=== PATIENT | female | born 1945 | race Caucasian/White ===

== ENCOUNTER 2016-11-14 13:30 | Inpatient (IN) | payer MEDICARE, OTHER ==
[~2016-11-14] VITALS: Ht 154.9 cm; Wt 58.5 kg
--- NOTE | 2016-11-14 13:25 | NUR ---
RECIEVED FROM PRIVATE VEHICLE FROM [facility].DRSG TO LOW MID BACK INTACT.TAKEN TO ROOM 1113B.CL IN REACH.
--- NOTE | 2016-11-14 16:00 | NUR ---
RESTING QUIETLY.VISITING WITH .
[2016-11-14 17:14] VITALS: BP 107/68; BMI 24.4
[2016-11-14 18:12] LABS: APPEARANCE CLEAR (CLEAR); BILIRUBIN NEGATIVE (NEGATIVE); COLOR YELLOW (YELLOW); GLUCOSE NEGATIVE (NEGATIVE); KETONE NEGATIVE (NEGATIVE); LEUKOCYTE ESTERASE NEGATIVE (NEGATIVE); NITRITE NEGATIVE (NEGATIVE); PROTEIN NEGATIVE (NEGATIVE); UROBILINOGEN NORMAL (NORMAL)
[2016-11-14 19:20] VITALS: BP 116/71
--- NOTE | 2016-11-14 19:32 | NUR ---
PT RECEIVE UP ON SIDE OF BED TALKING WITH SPOUSE. NO COMPLAINTS OR CONCERNS NOTED AT THIS TIME. CALL LIGHT IN REACH.
--- NOTE | 2016-11-14 21:49 | NUR ---
PT IN BED WITH EYES OPEN LOOKING AT PHONE. NO CONCERNS NOTED AT THIS TIME. CALL LIGHT IN REACH. WILL CONTINUE TO OBSERVE.
--- NOTE | 2016-11-15 00:03 | NUR ---
PT IN BED WITH EYES CLOSED AND EASILY AROUSED. ASSIST TO LEFT SIDE WITH PILLOW PROVIDED FOR SUPPORT. NO CONCERNS NOTED AT THIS TIME. CALL LIGHT IN REACH. WILL CONTINUE TO OBSERVE.
--- NOTE | 2016-11-15 01:52 | NUR ---
PT RESTING IN BED WITH EYES CLOSED AND CHEST RISING. RESPIRATIONS EVEN AND UNLABORED. NO SIGN/SYMPTOMS OF PAIN OR DISTRESS NOTED. CALL LIGHT IN REACH. WILL CONTINUE TO OBSERVE.
--- NOTE | 2016-11-15 03:17 | NUR ---
PT COMPLAINS OF PAIN TO LOWER BACK 6/10 WITH PRN PERCOCET GIVEN PER ORDERS. CALL LIGHT IN REACH. WILL CONTINUE TO OBSERVE.
[2016-11-15 06:12] LABS: BASOPHILS 0.5 % (0.0-2.0); EOSINOPHILS 2.7 % (0-7); HEMATOCRIT 29.4 % (36.0-48.0); HEMOGLOBIN 9.6 g/dL (12-16); IMMATURE GRANULOCYTES 0.4 % (0-5); LYMPHOCYTES 20.8 % (15-50); MCH 28.6 pg (26.0-34.0); MCHC 32.7 g/dL (31.0-37.0); MCV 87.5 fL (80.0-100.0); MEAN PLATELET VOLUME 9.7 fL (7.4-10.4); MONOCYTES 6.1 % (2-11); NEUTROPHILS 69.5 % (40-80); PLATELET COUNT 179 10x3/uL (130-400); RBC 3.36 10x6/uL (4.00-5.40); RDW 14.2 % (11.5-14.5); WBC 5.6 10x3/uL (4.8-10.8)
--- NOTE | 2016-11-15 06:15 | NUR ---
PT IN BED LYING FLAT ON BACK. NO COMPLAINTS MADE KNOWN. RECEIVED MEDICATIONS WHOLE WITHOUT DIFFICULTY. CALL LIGHT IN REACH.
[2016-11-15 06:32] LABS: CALC OSMOLALITY 280 mosm/kg (275-300); CALCIUM 7.9 mg/dL (8.5-10.1); CARBON DIOXIDE 28.6 mmol/L (21.0-32.0); CHLORIDE - SERUM 107 mmol/L (98-107); CREATININE - SERUM 0.7 mg/dL (0.6-1.3); GLUCOSE 97 mg/dL (74-106); POTASSIUM - SERUM 3.6 mmol/L (3.5-5.1); SODIUM 142 mmol/L (136-145); UREA NITROGEN 7 mg/dL (7-18); eGFR NON AFRICAN AMERICAN 88 mL/min (90-120)
--- NOTE | 2016-11-15 07:00 | NUR ---
PT WAS RECEIVED IN BED AT THE BEGINNING OF THIS SHIFT. AWAKE AND ORIENTED X 3. SHE NEEDED TO GO TO THE BATHROOM AND WAS ASSISTED THERE WITH STAND BY ASSIST. VITAL SIGNS: TEMP. 99.1, PULSE 82, RESP. 14, B/P 144/75, 02SAT. 95%. WILL BE MONITORING HER AND ASSISTING PRN WITH ADL'S. STABLE CONDITION OBSERVED.
[2016-11-15 09:25] VITALS: BP 144/75
--- NOTE | 2016-11-15 10:48 | NUR ---
PT WALKED WITH THERAPY THIS MORNING. DR. COPPOLA ROUNDED AND TALKED WITH PT. NEW ORDER RECEIVED.
--- NOTE | 2016-11-15 16:15 | NUR ---
CARE TEAM MEETING: PATIENT NEW TO UNIT AND WILL BE RA AT NEXT MEETING. WILL CONINUE TO FOLLOW WITH PATIENT
--- NOTE | 2016-11-15 19:25 | NUR ---
INTRODUCED SELF TO PT, PT STATES NO NEEDS AT THIS TIME, WILL CONTINUE TO MONITOR, CALL LIGHT WITHIN REACH.
[2016-11-15 20:16] VITALS: BP 129/74
--- NOTE | 2016-11-15 21:00 | NUR ---
NIGHT MEDICATION GIVEN, PT STATES PAIN AT A 5 IN LOW BACK AND LEG, PT TOLERATED WELL WILL CONTINUE TO MONITOR, CALL LIGHT WITHIN REACH.
--- NOTE | 2016-11-15 22:31 | NUR ---
ASSISTED PT TO BATHROOM AND BACK TO BED WITH MINIMAL ASSISTANCE, WILL CONTINUE TO MONITOR, CALL LIGHT WITHIN REACH.
--- NOTE | 2016-11-16 00:11 | NUR ---
PT RESTING QUIETLY, RESPIRATIONS EVEN, BED IN LOW POSITION, SIDE RAILS UP X'S 2, CALL LIGHT WITHIN REACH, WILL CONTINUE TO MONITOR.
--- NOTE | 2016-11-16 00:40 | NUR ---
ASSISTED PT. TO BATHROOM TO URINATE. PT.MOVING VERY SLOW BUT CAUTIOUS. AFTERWARD PT. WANTED TO SIT UP IN THE CHAIR FOR A WHILE AND SHE WILL LET ME KNOW WHEN SHE WANTS TO GO BACK TO BED. CALL LIGHT WITHIN REACH.
--- NOTE | 2016-11-16 01:35 | NUR ---
ASSISTED PT. BACK TO BED. PT. POSITIONED TO COMFORT WITH HOB FLAT. PT. CONTINUE TO USE LOG ROLLING TECHNIQUE TO GET IN/OUT OF BED. PT. DENIES ANY NEEDS AT THIS TIME AND CALL LIGHT IS WITHIN REACH.
--- NOTE | 2016-11-16 06:00 | NUR ---
PT. IN BED WITH HOB FLAT AND LYING ON HER BACK FOR HER POST-OP INSTUCTIONS. EYES CLOSED AND RESP. EVEN. PT. AWAKENS EASILY AND REQUESTED ASSISTANCE TO THE BATHROOM TO URINATE. PT. DECIDED TO GO TO THE W/C AND BE UP FOR BREAKFAST. CALL LIGHT WITHIN REACH. PT. HAS NO VOICED NEEDS AT THIS TIME.
--- NOTE | 2016-11-16 07:28 | NUR ---
RESTING QUIETLY IN BED. CALL LIGHT IN REACH
[2016-11-16] MEDS ORDERED: LOVENOX40 MG/0.4 SC (07:49)
[2016-11-16] MEDS ORDERED: COLACE100 MG PO (07:49)
[2016-11-16] MEDS ORDERED: LINZESS145 MCG PO (07:50)
[2016-11-16] MEDS ORDERED: MIRALAX17 GM PO (07:51)
[2016-11-16] MEDS ORDERED: PROTONIX40 MG PO (07:51)
[2016-11-16] MEDS ORDERED: MIDODRINE HCL5 MG PO (07:51)
[2016-11-16] MEDS ORDERED: ACETAMINOPHEN325 MG PO (07:52)
[2016-11-16] MEDS ORDERED: VALIUM5 MG PO (07:53)
[2016-11-16] MEDS ORDERED: PERCOCET 5-3251 TAB PO (07:53)
[2016-11-16] MEDS ORDERED: ZANAFLEX4 MG PO (07:54)
[2016-11-16] MEDS ORDERED: AMBIEN5 MG PO (07:55)
--- NOTE | 2016-11-16 08:15 | NUR ---
PT UP IN CHAIR IN ROOM NO PROBLEMS CALL LIGHT IN REACH WILL MONITER
[2016-11-16 11:17] VITALS: BP 125/79
--- NOTE | 2016-11-16 13:50 | NUR ---
PT RESTING IN BED WITH EYES OPEN CALL LIGHT IN REACH WILL MONITER
--- NOTE | 2016-11-16 17:50 | NUR ---
PT RESTING IN BED WITH EYES OPEN CALL LIGHT IN REACH NO PROBLEMS WILL MONITER
[2016-11-16 18:50] VITALS: BP 136/87
--- NOTE | 2016-11-16 20:30 | NUR ---
PT TOOK HS MEDS WITHOUT DIFFICULTY. PT REQ AND REC'D PRN PAIN MEDICINE FOR LOWER BACK PAIN AND AMBIEN FOR SLEEP. PT DENIES FURTHUR NEEDS AT THIS TIME. BED LOW. CL IN REACH.
--- NOTE | 2016-11-16 22:02 | NUR ---
PT RESTING, EYES CLOSED. BED LOW. CL IN REACH. WCTM.
--- NOTE | 2016-11-17 00:09 | NUR ---
PT RESTING, EYES CLOSED. BED LOW. CL IN REACH. WCTM.
--- NOTE | 2016-11-17 03:44 | NUR ---
PT RESTING, EYES CLOSED. BED LOW. CL IN REACH. WCTM.
--- NOTE | 2016-11-17 05:41 | NUR ---
PT REQ AND REC'D PRN PAIN MEDICATION FOR BACK PAIN. PT REFUSED LINZESS. PT SITTING UP AT BEDSIDE IN CHAIR AT THIS TIME AND DENIES FURTHUR NEEDS. WCTM. BED LOW. CL IN REACH.
[2016-11-17 07:52] VITALS: BP 120/73
--- NOTE | 2016-11-17 08:00 | NUR ---
SITTING UP IN WC EATING BREAKFAST;STATES PAIN EASED.CL IN REACH.DENIES NEEDS.
--- NOTE | 2016-11-17 12:00 | NUR ---
EATING LUNCH.DENIES NEEDS.
--- NOTE | 2016-11-17 16:00 | NUR ---
PT STATES MAY HAVE INDEPENDENCE IN ROOM.
[2016-11-17 19:49] VITALS: BP 119/75
--- NOTE | 2016-11-17 20:28 | NUR ---
PT UP AT SINK BRUSHING TEETH. PT HAS BEEN APPROVED BY THERAPY TO BE UP AD LETI. PT DENIES NEEDS AT THIS TIME.
--- NOTE | 2016-11-17 21:33 | NUR ---
PT REQ AND REC'D PRN AMBIEN FOR SLEEP. WCTM. BED LOW. CL INR EACH.
--- NOTE | 2016-11-17 21:35 | NUR ---
PT REQ ADN REC'D PRN NEENA FOR SLEEP. WCTM. BED LOW. CL IN REACH.
--- NOTE | 2016-11-18 00:30 | NUR ---
PT RESTING EYES CLOSED. BED LOW. CL IN REACH.
--- NOTE | 2016-11-18 02:30 | NUR ---
PT REQ AND REC'D PRN ZANAFLEX. WCTM. BED LOW. CL IN REACH.
--- NOTE | 2016-11-18 04:30 | NUR ---
PT REQ AND REC'D PRN PAIN MEDICATION FOR BACK PAIN. WCTM. BED LOW. CL IN REACH.
[2016-11-18 07:00] VITALS: BP 121/70
--- NOTE | 2016-11-18 08:00 | NUR ---
SHIFT ASSMT COMPLETED.DRSG TO LOW BACK.C/D/I.
--- NOTE | 2016-11-18 12:00 | NUR ---
EATING LUNCH.SITTING UP IN CHAIR.
--- NOTE | 2016-11-18 16:00 | NUR ---
VISITING WITH FRIENDS.
--- NOTE | 2016-11-18 19:30 | NUR ---
PT IS RESTING IN BED WITH EYES OPEN. ALERT AND ORIENTED X 4. DENIES ACUTE DISCOMFORT AT THIS TIME. VSS. NO NEEDS VOICED. DRESSING TO BACK IS CDI. PT DENIES ANY LEG SPASMS AT THIS TIME. SR'S ARE UP X 2 IN BED. CALL LIGHT AND BEDSIDE TABLE ARE WITHIN EASY REACH.
[2016-11-18 20:00] VITALS: BP 123/78
--- NOTE | 2016-11-18 21:40 | NUR ---
PT RESTING IN BED WITH EYES OPEN. NO NEEDS VOICED.
--- NOTE | 2016-11-19 00:30 | NUR ---
RESTING IN BED WITH EYES CLOSED. NO DISTRESS NOTED.
--- NOTE | 2016-11-19 03:45 | NUR ---
RESTING IN BED WITH EYES CLOSED.
--- NOTE | 2016-11-19 04:23 | NUR ---
PT ASSISTED TO THE BATHROOM WITH MAX ASSIST TO GET OUT OF BED, AND SBA FOR ALL OTHER TASKS. PT UNABLE TO BEND HER RIGHT LEG GETTING UP DUE TO EXTREME CRAMPING AND PAIN. NO FURTHER PAIN COMPLAINTS AFTER PT WAS IN A SITTING POSITION. MEDICATED PER DEC.
--- NOTE | 2016-11-19 06:12 | NUR ---
pt awake, lying in bed, respirations regular and unlabored.
[2016-11-19 07:00] VITALS: BP 112/60
--- NOTE | 2016-11-19 08:00 | NUR ---
AWAKE THIS AM SITTING UP IN CHAIR.DENIES NEEDS AT THIS TIME.STATES HAVING MORE SPASM PAIN DOWN RLE THAN ANYTHING ELSE.BREAKFAST GIVEN.DRSG TO BACK REMAINS INTACT.
--- NOTE | 2016-11-19 12:00 | NUR ---
REMAINS UP IN WC.VISITING WITH .
--- NOTE | 2016-11-19 20:00 | NUR ---
PT IS RESTING IN BED WITH EYES OPEN. ALERT AND ORIENTED X 3. DENIES ACUTE CRAMPING AT THIS TIME, BUT VOICED A PAIN LEVEL OF 4. DRESSING TO BACK IS CDI. PT IS INDEPENDENT IN HER ROOM, BUT WILL REQUEST ASSISTANCE WHEN NEEDED. SR'S ARE UP X 2 IN BED. CALL LIGHT AND BEDSIDE TABLE ARE WITHIN EASY REACH.
[2016-11-19 20:39] VITALS: BP 105/63
--- NOTE | 2016-11-19 22:14 | NUR ---
RESTING QUIETLY IN BED WITH EYES CLOSED. RESPS ARE EVEN AND UNLABORED. NO ACUTE DISTRESS NOTED.
--- NOTE | 2016-11-20 00:10 | NUR ---
PT RESTING, EYES CLOSED. BED LOW. CL IN REACH.
--- NOTE | 2016-11-20 03:01 | NUR ---
RESTING IN BED WITH EYES CLOSED.
--- NOTE | 2016-11-20 03:25 | NUR ---
PT USED CALL LIGHT TO REQUEST ASSIST TO THE BATHROOM. STATES SHE IS HAVING TROUBLE GETTING OUT OF BED, AND WANTS IT DOCUMENTED SUCH. PT GOT OUT OF BED WITH SBA FOR ALL TASKS. NO GRIMACING OR ACUTE DISCOMFORT NOTED. PT OPTED TO SIT UP IN CHAIR AFTERWARDS. MEDICATED PER DEC.
--- NOTE | 2016-11-20 06:00 | NUR ---
PT RESTING IN BED WITH EYES CLOSED. AWOKE EASILY TO VERBAL STIMULI. DENIED NEEDS. TOLERATED AM MEDS WITHOUT DIFFICULTY.
--- NOTE | 2016-11-20 07:45 | NUR ---
SITTING UP IN CHAIR IN ROOM EATING BREAKFAST. ALERT AND ORIENTED X3. MOVEMENT AROUND ROOM IS SLOW BUT STEADY
[2016-11-20 07:53] VITALS: BP 123/74
--- NOTE | 2016-11-20 12:21 | NUR ---
SITTING UP IN CHAIR EATING LUNCH IN ROOM. PAIN MEDS EFFECTIVE FOR BACK PAIN.
--- NOTE | 2016-11-20 18:08 | NUR ---
SITTING IN CHAIR BY BED TALKING TO FRIEND. DENIES NEEDS.
[2016-11-20 19:15] VITALS: BP 123/72
--- NOTE | 2016-11-20 19:20 | NUR ---
PT IN BED WITH HOB ELEVATED WATCHING TV. NO CONCERNS NOTED AT THIS TIME. CALL LIGHT IN REACH. WILL CONTINUE TO OBSERVE.
--- NOTE | 2016-11-20 21:15 | NUR ---
PT IN BED WITH EYES OPEN RECEIVED PRN BACLAFEN AND AMBIEN PER REQUEST. NO CONCERNS MADE KNOWN. CALL LIGHT IN REACH. WILL CONTINUE TO OBSERVE.
--- NOTE | 2016-11-20 23:02 | NUR ---
PT ASSISTED TO BATHROOM. COMPLAINS OF PAIN 6/10 WITH PRN PERCOCET GIVEN PER DEC. IN CHAIR AT BEDSIDE AT THIS TIME. WATER AND CALL LIGHT IN REACH. WILL CONTINUE TO OBSERVE.
--- NOTE | 2016-11-21 01:45 | NUR ---
PT IN BED WITH EYES CLOSED AND CHEST RISING. RESPIRATIONS EVEN AND UNLABORED. CALL LIGHT IN REACH. WILL CONTINUE TO OBSERVE.
--- NOTE | 2016-11-21 03:45 | NUR ---
PT IN BED WITH EYES CLOSED AND CHEST RISING. RESPIRATIONS EVEN AND UNLABORED. NO CONCERNS NOTED AT THIS TIME. CALL LIGHT IN REACH. WILL CONTINUE TO OBSERVE.
--- NOTE | 2016-11-21 07:00 | NUR ---
PT IN BED WITH EYES OPEN PAIN AT 3/10. RECEIVED SCHEDULED MEDICATIONS WITHOUT DIFFICULTY. CALL LIGHT IN REACH.
--- NOTE | 2016-11-21 07:30 | NUR ---
SITTING UP IN CHAIR IN ROOM WAITING ON BREAKFAST. PAIN CONTROLLED BY CURRENT MEDS. MOVES AROUND IN ROOM WITH NO ASST
[2016-11-21 08:44] VITALS: BP 129/57
--- NOTE | 2016-11-21 13:31 | NUR ---
SITTING UP IN W/C IN HER ROOM VISITING WITH . PAIN MEDS GIVEN ORDERED FOR BACK PAIN
--- NOTE | 2016-11-21 18:37 | NUR ---
RESTING QUIETLY IN BED. CALL LIGHT IN REACH
[2016-11-21 18:40] VITALS: BP 119/67
--- NOTE | 2016-11-21 22:52 | NUR ---
PT IN BED WITH EYES OPEN READING A BOOK. NO COMPLAINTS OR CONCERNS NOTED. CALL LIGHT IN REACH. WILL CONTINUE TO OBSERVE.
--- NOTE | 2016-11-22 00:38 | NUR ---
PT IN BED WITH EYES CLOSED WITH CHEST RISING. RESPIRATIONS EVEN AND UNLABORED. NO SIGN/SYMPTOMS OF DISTRESS NOTED. CALL LIGHT IN REACH. WILL CONTINUE TO OBSERVE.
--- NOTE | 2016-11-22 03:18 | NUR ---
PT COMPLAINS OF 4/10 PAIN TO BACK WITH PRN PERCOCET GIVEN PER MAR. IN BED LYING ON RIGHT SIDE AT THIS TIME. CALL LIGHT IN REACH. WILL CONTINUE TO OBSERVE.
--- NOTE | 2016-11-22 06:41 | NUR ---
PT UP IN CHAIR. NO CONCERNS MADE KNOWN. RECEIVED SCHEDULED MEDICATIONS WITHOUT DIFFICULTY. CALL LIGHT IN REACH.
--- NOTE | 2016-11-22 08:00 | NUR ---
SHIFT ASSMT COMPLETED.SITTING UP IN CHAIR.CL IN REACH.
[2016-11-22 08:09] VITALS: BP 116/73
--- NOTE | 2016-11-22 08:44 | RHP ---
PATIENT: SHERYL REID MEDICAL RECORD: [id number] ACCOUNT: [id number] LOCATION:[facility]1113 : 47 ADMISSION DATE: 11/14/16 REHABILITATION HISTORY AND PHYSICAL EXAMINATION POST ADMISSION PHYSICIAN EXAMINATION DATE OF ADMISSION TO THE REHAB: 11/14/2016. ADMITTING DIAGNOSES: Spondylolisthesis at L4-L5, status post L4-L5 TLIF reduction of spondylolisthesis. HISTORY OF PRESENT ILLNESS: The patient is a 71-year-old female patient with past medical history of back pain, gastroesophageal reflux disease and osteoarthritis. She has had low back pain for several years with exacerbation approximately 2 years ago when she reached out or picked up an object. Since then, she has been experiencing acute pains even when coughing or sneezing. She had episodes of severe pain, which resulted in significant loss of her ability to do activities of daily living and difficulty with ambulating. She attended physical therapy as well as lumbar epidural spinal injections which did not help, flexion x-rays revealed grade I to II L4-L5 spondylolisthesis. MRI of the spine reveals significant height loss in association with the spondylolisthesis, there was also a significant for type 2 Modic changes particular present and superior endplate of L5. Also, presence broad-based disc collapse at L4-L5 with neural foraminal stenosis. The facet joints at L4-L5 are widely open with evidence of fluid on MRI scan. She was seen by Dr. Arreola and underwent a posterior lumbar L4-L5 TLIF and reduction of spondylolisthesis. The patient has not had a bowel movement since surgery, but is urinating without difficulty. She participate in therapy; however, she does require assistance with ambulation, ADLs and transfers. She is doing 60 feet with minimal assist, but require several rest breaks, acute inpatient rehabilitation was ordered by her neurosurgeon. COMORBIDITIES: Include L4-L5 spondylolisthesis L4-L5 disc collapse, gastroesophageal reflux disease, osteoarthritis, chronic back pain, and postop constipation. PAST MEDICAL HISTORY: Significant spondylolisthesis, gastroesophageal reflux disease and osteoarthritis. PAST SURGICAL HISTORY: Includes hysterectomy, bunionectomy, hand surgery. ALLERGIES: No known drug allergies. CURRENT MEDICATIONS: Include polyethylene glycol 17 grams in 8 ounces of water daily, Protonix 40 mg daily, Lovenox 40 mg subQ daily, zolpidem 5 mg q.h.s. p.r.n., Tylenol 650 mg q.4 hours p.r.n., Colace 100 mg b.i.d., ____ mg t.i.d. She is on Valium 5 mg q. 6 hours p.r.n. spasm, Zanaflex 4 mg q.8 p.r.n. spasm and oxycodone 5 mg 5/325 as needed for pain. I am going to add Linzess 145 mcg in the morning to help with constipation. HABITS: No alcohol or tobacco use. FAMILY HISTORY: Noncontributory. SOCIAL HISTORY: The patient hopes to return back home to her . HISTORY AND PHYSICAL [id number] SHERYL REID REVIEW OF SYSTEMS: GENERAL: She does complain of weakness and fatigue. HEENT: She denies cold, cough, or congestion. CARDIOVASCULAR: She denies chest pain. PHYSICAL EXAMINATION: VITAL SIGNS: Stable and afebrile. GENERAL: Well-developed female in no acute distress, alert upon exam. HEENT: Normocephalic and atraumatic. Mucosa moist. NECK: Supple. No lymphadenopathy. LUNGS: Clear at this time. HEART: Regular rate and rhythm. ABDOMEN: Benign. EXTREMITIES: No clubbing, cyanosis or edema. NEUROLOGIC: She is intact. She does have some weakness associated with her surgery, but nothing acute. LABORATORY DATA: Her white count is 5.6, H&H 9.6 and 29.4, platelet count is 179. Her sodium is 142, potassium 3.6. BUN and creatinine of 7 and 0.7, blood sugar is noted to be 97. ASSESSMENT: This is a 71-year-old female patient admitted to rehab with a working diagnosis of spondylolisthesis, status post TLIF of her L4-L5. The patient has potential to make improvement. We instituted the following multidisciplinary therapies including to, but not limited to physical, occupational, respiratory, speech, nutritional services, prosthetics and orthotics. Given her complex condition and risk for more complications, rehabilitation services cannot be provided at a low level of care such as assisted facility. PLAN: 1. Admit to [facility] rehab for intensive inpatient therapy to include the following disciplines: A. Physical therapy to improve gait, all transfer skills and bed mobility to a modified independent level. B. Occupational therapy to improve activities of daily living to a modified independent level. C. Case management to assist with discharge planning and placement options. D. Nutrition to assist with nutritional needs. E. Rehabilitation nursing to assist in monitoring the patient's underlying medical conditions and to assist with any type of bowel or bladder management. 2. The patient's current medication and medical care will be continued. 3. The patient will be placed on standard fall precautions. 4. The patient's estimated length of stay is approximately 7-10 days. 5. Discuss this patient during care team staff meeting this week. TRANSINT:[id number] Voice Confirmation ID: [id number] DOCUMENT ID: [id number] HISTORY AND PHYSICAL [id number] SHERYL REID SCOTT MD at 0844 CC: [id number] DICTATION DATE: 11/15/16 0833 MENAGERIE CARETAKER: 11/15/16 1000 ADM IN [place] [id number] [place] [id number]
[2016-11-22 13:19] VITALS: Ht 154.9 cm; Wt 58.5 kg
--- NOTE | 2016-11-22 14:45 | NUR ---
CARE TEAM MEETING: PATIENT AND SPOUSE ATTENDED MEETING. TENATIVE DISCHARGE DATE IS 11/23/16. [facility] [employer] WILL PROVIDE NURSING, PT, OT. SPOUSE WILL PURCHASE [employer] FOR HOME USE. APPOINTMENTS: DR. COPPOLA 11/27/16 @ 11:30. SURGEON APPOINTMENT 11/23/16 @ 1:30 IN [place]. PATIENT CHOICE FORMS FOR HOME HEALTH AND [facility] FORM SIGNED, EXPLAINED AND FILED IN CHART. WILL CONTINUE TO FOLLOW WITH PATIENT UNTIL DISCHARGED.
[2016-11-22 19:10] VITALS: BP 122/64
--- NOTE | 2016-11-22 19:50 | NUR ---
PT UP IN CHAIR AT BEDSIDE. REQUEST AND RECEIVED CRANBERRY JUICE. NO OTHER NEEDS MADE KNOWN AT THIS TIME. CALL LIGHT IN REACH. WILL CONTINUE TO OBSERVE.
--- NOTE | 2016-11-22 21:32 | NUR ---
PT IN BED READING. COMPLAINED OF SPASMS WITH PRN BACLOFEN GIVEN. CALL LIGHT IN REACH. WILL CONTINUE TO OBSERVE.
--- NOTE | 2016-11-22 23:19 | NUR ---
PT IN BED WITH EYES CLOSED LYING ON LEFT SIDE. RESPIRATIONS EVEN AND UNLABORED. CALL LIGHT IN REACH. WILL CONTINUE TO OBSERVE.
--- NOTE | 2016-11-23 00:25 | NUR ---
PT IN BED WITH EYES OPEN STATING JUST RETURNED TO BED FROM BATHROOM. NO COMPLAINTS OF DISCOMFORT OR OTHER NEEDS MADE KNOWN AT THIS TIME. CALL LIGHT IN REACH. WILL CONTINUE TO OBSERVE.
--- NOTE | 2016-11-23 02:16 | NUR ---
PT IN BED AROUSED TO ENTRY. NO NEEDS MADE KNOWN AT THIS TIME. CALL LIGHT IN REACH. WILL CONTINUE TO OBSERVE.
--- NOTE | 2016-11-23 06:41 | NUR ---
PT IN BED WITH EYES OPEN. MEDICATIONS ADMINISTER WITHOUT DIFFICULTY. NO CONCERNS MADE KNOWN. CALL LIGHT IN REACH.
--- NOTE | 2016-11-23 08:00 | NUR ---
SHIFT ASSMT COMPLETED.DRSG IN PLACE TO LOW MID BACK;REQUESTED FOR [facility] TO REMOVE AT [facility] TODAY.PLAN TO DISCHARGE HOME THIS AM.
[2016-11-23] MEDS ORDERED: BACLOFEN10 MG PO (08:31)
--- NOTE | 2016-11-23 09:27 | NUR ---
ORDERED ROLLING WALKER AND BSC FOR PATIENT FROM [facility] THAT WILL BE DELIVERED TO PATIENT HOME
[2016-11-23 09:43] VITALS: BP 132/74
--- NOTE | 2016-11-23 11:00 | NUR ---
REVIEWED ALL MEDS AND HOME CARE WITH PT AND SIGNIFICANT OTHER WITH UNDERSTANDING NOTED.DME CO TO MAKE DELIVERY OF BSC AND WALKER AT [facility] AFTER 3PM.DISCHARGED IN STABLE CONDITION.
== END 2016-11-23 11:00 | disposition home health service (06) | DRG 552 ==
LOC: D.REHAB 13:30
PROVIDERS: ADMIT Emergency Medicine
DX: M43.16 Spondylolisthesis, lumbar region (principal); K21.9 Gastro-esophageal reflux disease without esophagitis; M19.90 Unspecified osteoarthritis, unspecified site; G89.29 Other chronic pain; M54.5 Low back pain; T81.89XA Other complications of procedures, not elsewhere classified, initial encounter

== ENCOUNTER → 2017-06-19 16:42 | Outpatient (CLI) | payer MEDICARE, OTHER ==
[2016-11-22 13:19] VITALS: BMI 24.3
[~2017-06-19 16:42] MED LIST: ACETAMINOPHEN325 MG PO; AMBIEN5 MG PO; BACLOFEN10 MG PO; COLACE100 MG PO; LINZESS145 MCG PO; LOVENOX40 MG/0.4 SC; MIDODRINE HCL5 MG PO; MIRALAX17 GM PO; PERCOCET 5-3251 TAB PO; PROTONIX40 MG PO; VALIUM5 MG PO; ZANAFLEX4 MG PO
== END | disposition home or self-care (01) ==
LOC: D.MAMMO 10:30
DX: Z12.31 Encounter for screening mammogram for malignant neoplasm of breast (principal)

== ENCOUNTER → 2017-07-18 14:11 | Outpatient (CLI) | payer MEDICARE, OTHER ==
[2016-11-22 13:19] VITALS: BMI 24.3
== END | disposition home or self-care (01) ==
LOC: D.MAMMO 10:00
DX: R92.8 Other abnormal and inconclusive findings on diagnostic imaging of breast (principal)

== ENCOUNTER → 2019-04-04 19:00 | Outpatient (CLI) | payer MEDICARE, OTHER ==
[2016-11-22 13:19] VITALS: BMI 24.3
== END | disposition home or self-care (01) ==
LOC: D.MAMMO 09:45
PROVIDERS: ATTEND Emergency Medicine
DX: Z12.31 Encounter for screening mammogram for malignant neoplasm of breast (principal)